=== PATIENT | female | born 2005 | race Two or more races ===

== ENCOUNTER 2025-05-21 00:40 | Emergency (ER) | payer OTHER ==
[~2025-05-21] VITALS: Ht 160 cm; Wt 102.1 kg
[2025-05-21] MEDS ORDERED: FAMOTIDINE/PF 20 MG in 0.9 % SODIUM CHLORIDE 8 ML IV PUSH STA (02:13)
[2025-05-21] MEDS ORDERED: KETOROLAC TROMETHAMINE 30 MG VIAL IV ONE (02:15)
[2025-05-21] MEDS ORDERED: ONDANSETRON HCL 2 MG/ML VIAL IV ONE (02:15)
[2025-05-21] MEDS ORDERED: KETOROLAC TROMETHAMINE 30 MG VIAL ONE (02:18)
[2025-05-21] MEDS ORDERED: FAMOTIDINE/PF 20 MG/2 ML VIAL ONE (02:19)
[2025-05-21] MEDS ORDERED: ONDANSETRON HCL 2 MG/ML VIAL ONE (02:19)
[2025-05-21 02:50] LABS: BASO % 0.4 % (0.1-1.2); EOS # 0.20 (0.04-0.54); EOS % 2.2 % (0.7-7.0); LYMPH # 2.59 (1.18-3.74); LYMPH % 29.0 % (19.3-53.1); MEAN PLATELET VOLUME 11.90 fl (9.4-12.4); MONO # 0.48 (0.24-0.82); MONO % 5.4 % (4.7-12.5); NEUT # 5.62 (1.56-6.13); NEUT % 62.9 % (34.0-71.1); RED CELL DISTRIBUTION WIDTH 12.2 % (11.6-14.4)
[2025-05-21 03:12] LABS: ALT/SGPT 28.0 U/L (12-78); AST/SGOT 19.0 U/L (15-37); BILIRUBIN TOTAL 0.54 mg/dL (0.3-1.2); BILIRUBIN,CONJUGATED 0.14 mg/dL (0.0-0.2); BUN CREA RATIO 18.0 (7.0-25.0); CREATININE SERUM 0.68 mg/dL (0.55-1.02); GFR 110.31; GLOBULINA 3.9 G/DL (2.4-3.5); GLUCOSE FASTING 91.0 mg/dL (65-100); OSMOLALITY SERUM 281.0 MOSM/KG (275-295)
[2025-05-21] MEDS ORDERED: KETO10TA2 PO (03:53)
[2025-05-21] MEDS ORDERED: PEPCID AC20 MG PO (03:53)
== END 2025-05-21 04:00 | disposition home or self-care (01) ==
LOC: ER 00:40 → EMR PED 00:59 → ER 00:59 → EMR PED 04:00
PROVIDERS: General Practice
DX: K80.50 Calculus of bile duct without cholangitis or cholecystitis without obstruction (principal); R10.11 Right upper quadrant pain; Z88.0 Allergy status to penicillin

== ENCOUNTER 2025-05-29 10:54 | Inpatient (IN) | payer OTHER ==
[~2025-05-29] VITALS: Ht 162.6 cm; Wt 104.3 kg
[~2025-05-29 10:54] MED LIST: FLECAINIDE ACE150 MG PO; KETO10TA2 PO; PEPCID AC20 MG PO; TOPROL XL50 M1 PO
[2025-05-29] MEDS ORDERED: CIPROFLOXACIN IN 5 % DEXTROSE 200 ML IV SCH (11:38)
[2025-05-29] MEDS ORDERED: POTASSIUM CHLORIDE/D5-0.9%NACL 1,000 ML IV SCH (11:45)
[2025-05-29] MEDS ORDERED: FAMOTIDINE/PF 20 MG in 0.9 % SODIUM CHLORIDE 8 ML IV PUSH SCH (13:34)
[2025-05-29 14:05] VITALS: BP 104/71; O2SAT 97
[2025-05-29 16:00] VITALS: BP 110/74; O2SAT 99
[2025-05-29] MEDS ORDERED: METOPROLOL SUCCINATE 50 MG TAB.SR.24H PO SCH (17:00)
[2025-05-29] MEDS ORDERED: FF) FLECAINIDE ACETATE 50MG TAB PO SCH (17:00)
[2025-05-29] MEDS ORDERED: ONDANSETRON HCL 2 MG/ML VIAL IV PRN (21:00)
[2025-05-30 00:49] VITALS: BP 100/57; O2SAT 100
[2025-05-30 08:46] VITALS: BP 93/62; O2SAT 98
[2025-05-30] MEDS ORDERED: FF) FLECAINIDE ACETATE 50MG TAB PO SCH (09:00)
[2025-05-30] MEDS ORDERED: BUPIVACAINE HCL 30 ML VIAL IJ ONE (13:30)
[2025-05-30] MEDS ORDERED: POTASSIUM CHLORIDE/D5-0.45NACL 20 MEQ/1,000 ML PIGGYBAG IV NR (14:15)
[2025-05-30] MEDS ORDERED: MORPHINE SULFATE 4 MG/ML CARTRIDGE IV PRN (14:30)
[2025-05-30] MEDS ORDERED: POTASSIUM CHLORIDE/D5-0.45NACL 1,000 ML IV NR (14:30)
[2025-05-30] MEDS ORDERED: MORPHINE SULFATE 4 MG/ML VIAL IV ONE (15:00)
[2025-05-30 18:28] VITALS: BP 110/74; O2SAT 98
[2025-05-30] MEDS ORDERED: FAMOTIDINE/PF 20 MG/2 ML VIAL IV SCH (21:00)
[2025-05-31 01:26] VITALS: BP 103/69; O2SAT 99
[2025-05-31 08:22] VITALS: BP 101/69; O2SAT 97
== END 2025-05-31 15:07 | disposition home or self-care (01) | DRG 419 ==
LOC: ER 10:54 → SURH 12:01
PROVIDERS: ADMIT Specialist; ATTEND Specialist
PROC: BF37ZZZ Magnetic Resonance Imaging (MRI) of Pancreas (ICD-10-PCS; principal; 2025-05-29)
PROC: 0FT44ZZ Resection of Gallbladder, Percutaneous Endoscopic Approach (ICD-10-PCS; 2025-05-30)
PROC: BF13YZZ Fluoroscopy of Gallbladder and Bile Ducts using Other Contrast (ICD-10-PCS; 2025-05-30)
DX: K80.00 Calculus of gallbladder with acute cholecystitis without obstruction (principal)